=== PATIENT | male | born 1960 | race Caucasian/White ===

== ENCOUNTER → 2017-09-13 08:25 | Outpatient (CLI) | payer OTHER, SELFPAY ==
--- NOTE | 2017-09-13 08:42 | RAD_ITS ---
XR Shoulder Min 2 Views INDICATION: post op COMPARISON: None TECHNIQUE: 3 views of the left shoulder FINDINGS: The left distal clavicle is chronically absent. There is evidence of a left shoulder arthroplasty with components in expected position. There is no evidence of acute fracture. RAD/Shoulder min 2 Views IMPRESSION: Left shoulder arthroplasty. 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 at 1935 Reported and signed by: Shama Bhakta MD Electronically Signed: Shama Bhakta MD at 18:33 EST Tel , Service support ,
== END ==
PROVIDERS: Family Provider Family Medicine; PCP Family Medicine; Visit Provider Orthopaedic Surgery
DX: M25.512 Pain in left shoulder (principal)
CPT/HCPCS: 73030

== ENCOUNTER → 2017-09-29 20:00 | Outpatient (CLI) | payer OTHER, SELFPAY | PROVIDERS: Family Provider Family Medicine; PCP Family Medicine; Visit Provider Family Medicine | DX: G47.33 Obstructive sleep apnea (adult) (pediatric) (principal) | CPT/HCPCS: 95810 ==

== ENCOUNTER → 2018-02-08 20:03 | Outpatient (CLI) | payer OTHER, SELFPAY | PROVIDERS: Family Provider Family Medicine; PCP Family Medicine; Visit Provider Nurse Practitioner Acute Care | DX: G47.33 Obstructive sleep apnea (adult) (pediatric) (principal) | CPT/HCPCS: 95811 ==

== ENCOUNTER 2018-04-22 11:30 | Day surgery (SDC) | payer OTHER, SELFPAY ==
[2018-04-22 11:51] VITALS: BP 135/83; PULSE 90; RESP 18; TEMP 36.6; O2SAT 98; BMI 31.8
[2018-04-22] MEDS: Cefazolin 2 GM in 0.9% Normal Saline 100 ML IV (15:27)
--- NOTE | 2018-04-22 15:34 | DCINST_ITS ---
Discharge Diet: No Restrictions - keep incision clean, dry and intact, if dressing gets wet, change dressing; follow up in 2 weeks for suture removal, call with concerns Discharge Activity: May Not Drive May shower in (days): 1 Ice area for (Minutes): 20 - Every hour while awake. Weight Bearing Status: Weight bearing as tolerated Keep extremity elevated above heart level: Operative Extremity Call your doctor if your incision/area has: Continuous Slow Oozing, Sudden Increased Bleeding, Increased Pain/ Swelling, Increased Redness, Foul Smelling Discharge Call your doctor if you observe: Fever of 101 or Higher, Coldness, Increased Pain, Numbness or Tingling, Change in Color, Calf discomfort Allergies/Adverse Reactions: Allergies hydrocodone [From Vicodin] Adverse Reaction (Verified 04/15/18 14:19) HEADACHE STATES CAN TAKE TYLENOL, NOT VICODIN niacin Adverse Reaction (Verified 04/15/18 14:19) FLUSHING oxycodone Adverse Reaction (Verified 04/15/18 14:19) Nausea/Vom/Diarrhea Medications to take at Discharge Simvastatin [Zocor] 40 mg PO QHS 03/16/17 cholecalciferol (vitamin D3) 400 unit capsule 400 unit PO QDAY 10/20/17 Fluticasone 0.05% [Flonase Nasal [place]] 1 spray NASAL DAILY 04/15/18 Primary Care Physician: Alfred Hernandez [Primary Care Provider] - Test Results: Test results from this visit will be discussed in further detail at your follow- up appointment, if applicable. Please Follow Up With: Saima Dumont, - [phone]
--- NOTE | 2018-04-22 15:34 | PCM.OPRPT ---
Report of Operation Date of Procedure: 04/22/18 Pre-Operative Diagnosis: left ring trigger finger Post-Operative Diagnosis: same Surgery/Procedure Performed:: left a1 elisha release ring finger Type of Anesthesia:: Marlen Espinosa Anesthesiologist: Gabe Ross Estimated Blood Loss (mL): none Description of Procedure: preoperative note 58 year old male with continued left ring finger triggering. Failed conservative treatment. Unable to golf without locking. Risks benefits and alternatives surgery discussed with patient. Risks including but not limited to blood loss, blood clot, infection, neurovascular injury, failure procedure, loss of life and loss of limb. Patient is aware would like to proceed with left ring trigger finger A1 elisha release. Operative note Patient seen and examined preoperative holding area. Left ring finger was marked. Patient brought to the operating room placed supine on the operating room table. Sign, anesthesia, antibiotics were administered. Left arm was prepped and draped in usual sterile fashion after Marlen block was initiated. We marked out our incision for ring finger A1 elisha of the left finger. We ensured that the block was working. We then used a 15 blade to cut through skin and dissect tenotomy dissect down to level of the A1 elisha A1 elisha was released and the tendons were brought out of the skin and the finger was flexed and sent to ensure no further locking which there was not. Incision was clipped was irrigated with copious amounts of sterile saline. Incision was closed with interrupted 4-0 nylon stitches. Sterile dressing were applied. Patient tolerated procedure well there are no comp occasions transferred to recovery room in stable condition. Postoperative Follow-up in 2 weeks Leave dressing clean dry and intact significant dressing wet told to change dressing as Call with concerns This note was generated with [employer] dictation software. It may contain incorrect words, spelling, and punctuation that were not noted in checking the note before signing.
[2018-04-22] MEDS: Mupirocin Ointment 22gm Tube 1 APPLIC (15:53)
[2018-04-22 16:04] VITALS: BP 118/65; BP 135/83; PULSE 82; RESP 16; TEMP 36.3; O2SAT 92
[2018-04-22 16:10] VITALS: BP 115/68; BP 135/83; PULSE 78; RESP 16; O2SAT 92
[2018-04-22 16:14] VITALS: BP 118/69; BP 135/83; PULSE 81; RESP 16; O2SAT 95
[2018-04-22 16:16] VITALS: BP 135/83; PULSE 87; RESP 16; TEMP 36.3; O2SAT 94
[2018-04-22 16:29] VITALS: BP 135/83
== END 2018-04-22 16:30 | disposition home or self-care (01) ==
LOC: SDC 11:31 → AC 11:33
PROVIDERS: Family Provider Family Medicine; PCP Family Medicine; Visit Provider Orthopaedic Surgery
PROC: (CPT 26055; principal; 2018-04-22 12:55)
DX: M65.342 Trigger finger, left ring finger (principal); M65.331 Trigger finger, right middle finger; E78.00 Pure hypercholesterolemia, unspecified; E79.0 Hyperuricemia without signs of inflammatory arthritis and tophaceous disease; J30.9 Allergic rhinitis, unspecified; G47.30 Sleep apnea, unspecified; K21.9 Gastro-esophageal reflux disease without esophagitis; Z79.899 Other long term (current) drug therapy
CPT/HCPCS: 01810; 26055; J7120

== ENCOUNTER → 2018-08-22 08:07 | Outpatient (CLI) | payer OTHER, SELFPAY ==
--- NOTE | 2018-08-22 08:18 | RAD_ITS ---
HISTORY: INJURIES WHILE LIFTING COMPARISON: None FINDINGS: # of images incl. paperwork: 3 XR Elbow Min 3 Views: Left SOFT TISSUES: There is no displacement of the anterior or posterior fat pads. Orthopedic anchor in the region of the biceps insertion on the proximal radius. Tenderness calcification adjacent to the medial condyle.. BONES: No acute fracture or subluxation. No sclerotic or destructive changes observed. JOINTS: Preservation of the joint space. Articular surfaces are unremarkable. RAD/Elbow min 3 Views IMPRESSION: No acute findings. Evidence of previous biceps tendon repair. at 0946 Reported and signed by: Raoul Delcid MD Electronically Signed: Raoul Delcid, at 9:45 EST Tel , Service support ,
== END ==
PROVIDERS: Family Provider Family Medicine; PCP Family Medicine; Referring Provider Orthopaedic Surgery; Visit Provider Orthopaedic Surgery
DX: M79.602 Pain in left arm (principal); M25.512 Pain in left shoulder
CPT/HCPCS: 73080

== ENCOUNTER → 2018-12-23 08:05 | Outpatient (CLI) | payer OTHER, SELFPAY ==
--- NOTE | 2018-12-23 08:06 | RAD_ITS ---
STUDY: X-RAY - LEFT HAND REASON FOR EXAM: Male, 58 years old. Loss of music manager. TECHNIQUE: 3 view(s) of the hand. COMPARISON: None. FINDINGS: Normal radiocarpal articulation. Normal distal radioulnar joint. Normal visualized carpal bones. Normal carpal articulations Normal carpometacarpal articulation of the thumb. Normal second through fifth carpometacarpal joints. Normal metacarpi. Normal metacarpophalangeal joint of the thumb. Normal interphalangeal joint of the thumb. Normal proximal and distal phalanges of the thumb. Normal metacarpophalangeal joints of the second through fifth fingers. Normal proximal and distal interphalangeal joints of the second through fifth fingers. Normal phalanges of the second through fifth fingers. The soft tissue structures are unremarkable. RAD/Hand Min 3 Views IMPRESSION: Normal x-ray examination of the hand. Electronically Signed: Willian Bosch, at 13:46 EDT , Service support ,
== END ==
PROVIDERS: Family Provider Family Medicine; PCP Family Medicine; Referring Provider Orthopaedic Surgery; Visit Provider Orthopaedic Surgery
DX: M79.645 Pain in left finger(s) (principal)
CPT/HCPCS: 73130

== ENCOUNTER → 2019-03-09 06:32 | Outpatient (CLI) | payer OTHER, SELFPAY ==
--- NOTE | 2019-03-09 06:41 | MRI_ITS ---
STUDY: MRI RIGHT ANKLE WITHOUT CONTRAST REASON FOR EXAM: Male, 59 years old. Achilles tendinitis. Fracture. Sinus tarsus syndrome. Pain. TECHNIQUE: Standardized fat and water weighted pulse sequences were obtained in all 3 orthogonal planes. COMPARISON: None. FINDINGS: Normal syndesmotic ligaments. Minimal thickening of the anterior talofibular ligament. Normal posterior talofibular ligament. Normal calcaneofibular ligament. Normal deltoid ligament. Normal spring ligament. Sinus Tarsi/subtalar ligament edema (sagittal images 9 through 12 series 10). Normal Lisfranc ligament. Normal extensor tendons. Normal peroneus tendons. Minimal posterior tibialis, flexor digitorum longus and flexor hallucis longus tenosynovitis. Normal Achilles tendon. Normal plantar fascia. Normal plantar calcaneal insertion. Normal muscles of the midfoot/hindfoot. Slightly prominent talar beak. Talar dome intact. Minimal tibiotalar joint arthrosis anteriorly. Normal subtalar articular cartilage. Normal calcaneocuboid articular cartilage. Normal talonavicular articular cartilage. Mild navicular cuneiform joint arthrosis (sagittal image 16 series 9) with partial fibro-osseous coalition. Mild second tarsometatarsal joint arthrosis. Mild medial/middle cuneiform arthrosis. No acute fracture line. No dislocation. Mild medial cuneiform bone marrow edema. Mild soft tissue swelling. No solid, cystic or lipomatous soft tissue lesions. Small volume subtalar joint effusion extending into the sinus Tarsi. Trace talonavicular joint effusion. 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
== END ==
PROVIDERS: Family Provider Family Medicine; PCP Family Medicine; Referring Provider Podiatrist; Visit Provider Podiatrist
DX: M76.71 Peroneal tendinitis, right leg (principal); M76.61 Achilles tendinitis, right leg; S82.51XA Displaced fracture of medial malleolus of right tibia, initial encounter for closed fracture; M25.571 Pain in right ankle and joints of right foot; X58.XXXA Exposure to other specified factors, initial encounter; Y93.9 Activity, unspecified; Y92.9 Unspecified place or not applicable; Y99.9 Unspecified external cause status
CPT/HCPCS: 73721

== ENCOUNTER → 2019-09-06 09:11 | Outpatient (CLI) | payer OTHER, SELFPAY ==
[2019-09-05 12:44] VITALS: BMI 31.8
--- NOTE | 2019-09-06 09:11 | RAD_ITS ---
STUDY: X-RAY - RIGHT HAND REASON FOR EXAM: Male, 59 years old. CHRONIC PAIN. NO INJURY TECHNIQUE: 3 view(s) of the hand. COMPARISON: None. FINDINGS: Normal radiocarpal articulation. Normal distal radioulnar joint. Normal visualized carpal bones. Normal carpal articulations There are mild degenerative changes of the first metacarpal greater multangular joint. Normal second through fifth carpometacarpal joints. Normal metacarpi. There are mild degenerative changes of the first metacarpophalangeal joint. Normal interphalangeal joint of the thumb. There is a cortical step off of the base of the first distal phalanx which may represent old injury. Normal metacarpophalangeal joints of the second through fifth fingers. Normal proximal and distal interphalangeal joints of the second through fifth fingers. Normal phalanges of the second through fifth fingers. The soft tissue structures are unremarkable. RAD/Hand Min 3 Views IMPRESSION: Mild degenerative changes of the first metacarpal greater multangular joint and first metacarpophalangeal joint. There is a cortical step off of the base of the first distal phalanx which may represent evidence of old injury. Electronically Signed: Raoul Duarte MD at 16:49 EST , Service support ,
== END ==
PROVIDERS: PCP Family Medicine; Referring Provider Orthopaedic Surgery; Visit Provider Orthopaedic Surgery
DX: M79.641 Pain in right hand (principal)
CPT/HCPCS: 73130

== ENCOUNTER → 2020-01-15 08:30 | Outpatient (CLI) | payer OTHER, SELFPAY ==
[2020-01-15 08:25] VITALS: BMI 31.8
--- NOTE | 2020-01-15 08:31 | RAD_ITS ---
STUDY: X-RAY - RIGHT SHOULDER REASON FOR EXAM: Male, 59 years old. Shoulder pain, no injury TECHNIQUE: 4 view(s) of the shoulder. COMPARISON: None. FINDINGS: Glenohumeral joint has been previously replaced. Components demonstrate anatomic alignment. No plain film evidence of hardware complication, failure, or acute traumatic abnormality. There is a subcortical lucency in the region of the greater tuberosity of the humerus this may be a bone cyst or posttraumatic in nature.. There is degenerative arthrosis of the acromioclavicular joint without inferior osseous spur formation. Normal acromion. Normal humeral head and visualized proximal humerus. The soft tissue structures are unremarkable. Normal visualized pulmonary apex. RAD/Shoulder min 2 Views IMPRESSION: Anatomic alignment of a replaced glenohumeral joint. Hardware is free of complication Mild acromioclavicular joint arthrosis Sub cortical lucency in the greater tuberosity of the humerus, likely posttraumatic Electronically Signed: Vishal Gao MD at 9:03 EDT , Service support ,
== END ==
PROVIDERS: PCP Family Medicine; Referring Provider Orthopaedic Surgery; Visit Provider Orthopaedic Surgery
DX: Z96.611 Presence of right artificial shoulder joint (principal)
CPT/HCPCS: 73030

== ENCOUNTER → 2020-06-21 | Outpatient (CLI) | payer OTHER, SELFPAY ==
[2020-06-21 14:17] VITALS: BMI 32.9
== END | disposition home or self-care (01) ==
LOC: LABSPEC 17:32
PROVIDERS: PCP Family Medicine; Visit Provider Physician Assistant Surgical
DX: U07.1 COVID-19 (principal)
CPT/HCPCS: 87635; U0003

== ENCOUNTER 2021-02-17 07:30 | Outpatient (RCR) | payer OTHER, SELFPAY ==
[2020-06-21 14:17] VITALS: BMI 32.9
[2020-11-23 12:18] VITALS: BMI 31.8
--- NOTE | 2020-12-09 08:15 | HP.PTEVAL ---
Patient's Visit Information AMAYA SILVA is a 60 year old M referred to Physical Therapy by SHAINA LAWSON with a diagnosis of R reverse TSA 11/28/20. Date of Evaluation: 12/09/20 Physical Therapist: Porter Saenz, DPT, OCS, CSCS - Visit Plan Frequency: 2-3x /Week Duration: 3 Months Plan: 3x/week for 2-4 weeks then 1-2x/weeka s needed for 4-8 weeks. Pt is currently limited to only PROM flexion 140 and er 30 until 12/19, then AROM with same limitations until doctor f/u 01/02. Can do PROM, scar massage, ice as needed. Cn teach family PROM if desired. Gentle elisha allowable. - Subjective Original TSA r in 2014. Needed revision to R reverse TSA 11/28/20. Pastic was broken in old one. It went fantastic. No pain pills needed. No pain lately, maybe 0-08/04. Sleeping OK in bed and no problems. This is 16th shoulder surgery(RTC B 2x, spurs). Off work couple days. 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 Sling out in public if desired. Doctor said no sling. Don't go backwards or out with arm. Washing hair and eating with R arm. No golfing yet allowed. Can't drive car as he has to shift his corvette. R handed. Is ambidextrous. Doing pendulums - Pain r shoulder Pain Intensity (Out of 10): 0 Pain Intensity Range: 0, 1 - Objective Walks in I, trasnferring I, and sling on R UE, donned adn doffed I. cervical ROM symmetrical adn painfree. ebow and hand/wrist AROM full and painfree. L shoulder aROM WFL and without pain. R shoulder PROM(script only allows this) 110 flexion, 80 abd, 8 ER, 40 IR. Limtied by patient feeling of tightness, not pain. strength R elbow 4-, wrist 4, thumb 4, shoulder not tested. Incision is anterior and helaed well, dry,no signs of excessive redness , heat or swelling. Smome moderate scar tissue palpable ditally mediall at incision. - Goals Goal 1:: Progress per scripts without issues through strength once allowed. Goal Time Frame: 6-8 Weeks Goal 2:: Plan for patient to return to gof Goal Time Frame: 8-12 Weeks Goal 3:: Drive car without pain Goal Time Frame: 4-6 Weeks Goal 4:: ST: PROM to 140 abd and 30 ext rot Goal Time Frame: 2 Weeks Goal 5:: quick dash score 5 or less. Goal Time Frame: 6-8 Weeks - Rehabilitation Potential Physical Therapy Diagnosis: s/p R rev TSA with stiffness and lack of function. Rehabilitation Potential: Good - Anticipated Interventions Patient/Client Instruction: Educate patient on: Condition, Plan of Care, Risk Factors For the Purpose of:: To increase ROM, To improve muscle performance and motor function, To increase tolerance to activity/condition/position, To improve ability of physical actions for home/community/work/leisure, To improve gait and locomotor functions Therapeutic Exercise to Include: Passive ROM For the Purpose of:: To increase ROM Manual Therapy Techniques to Include: Scar massage, Passive ROM For the Purpose of:: To increase ROM, To improve nutrient delivery to tissue, To improve muscle performance and motor function Cryotherapy (ice pack, ice massage): Yes For the Purpose of:: To decrease swelling/inflammation Thank you for the opportunity to evaluate your patient. For Medicare and Medicare HMO plans, please review the plan of care and approve it. It will need to be FAXED BACK to us at [phone] for Medicare purposes. For Medicare only, by signing this I certify the plan of care. Please let me know if there are questions or concerns regarding this plan of care. Physician Signature: Date:
--- NOTE | 2021-01-24 08:35 | HP.PTREVAL ---
SHAINA LAWSON, It has been my pleasure to treat AMAYA SILVA over the last 18 visits for R reverse TSA 11/28/20. Please see the progress note below for an update on the physical therapy plan of care! Subjective: Pt reports he is doing well, and wants to cut down to once per week after this visit Objective/Function: R shoulder pain is 0/10. R shoulder strength: R shoulder is 5/5 throughout with exception to ER= 4/5. R shoulder ROM: Flex= 150, abd= 140, ER= 22 Plan Plan: If tolerated, please give YTB row, add, ext, er, bi and tri with pics for HEP gently. Emphasize gentleness and painfree ROM. Goals Goal 1:: Progress per scripts without issues through strength once allowed. Goal Time Frame: 6-8 Weeks Goal Progress: Progressing Goal 2:: Plan for patient to return to gof Goal Time Frame: 8-12 Weeks Goal Progress: Progressing Goal 3:: Drive car without pain Goal Time Frame: 4-6 Weeks Goal Progress: Goal Met Goal 4:: ST: PROM to 140 abd and 30 ext rot Goal Time Frame: 2 Weeks Goal Progress: Progressing Goal 5:: quick dash score 5 or less. Goal Time Frame: 6-8 Weeks Anticipated Interventions Patient/Client Instruction: Educate patient on: Condition, Plan of Care, Risk Factors For the Purpose of:: To increase ROM, To improve muscle performance and motor function, To increase tolerance to activity/condition/position, To improve ability of physical actions for home/community/work/leisure, To improve gait and locomotor functions Therapeutic Exercise to Include: Passive ROM For the Purpose of:: To increase ROM Manual Therapy Techniques to Include: Scar massage, Passive ROM For the Purpose of:: To increase ROM, To improve nutrient delivery to tissue, To improve muscle performance and motor function Cryotherapy (ice pack, ice massage): Yes For the Purpose of:: To decrease swelling/inflammation Please do not hesitate to contact me at [phone] by phone or if you have questions or concerns regarding this new plan of care! Sincerely, Yobani Bourne, PT, ATC
--- NOTE | 2021-02-17 07:55 | HP.PTDCSUM ---
It has been my pleasure to treat AMAYA SILVA referred by SHAINA LAWSON, with the diagnosis of R reverse TSA 11/28/20 for a total of 24 visit(s). Discharge Date: 02/17/21 Please see the following information for a summary of their discharge status. Subjective: No pain. Still little different than other shoulder. Getting hand behind back is a booger. Day to day activities not llimited. To doctor next Wednesday. Working out on own now in gym. Using machines and free weights. r shoulder Pain Intensity (Out of 10): 0 % Improvement: 90 Objective/Function: 142 R shouldr flexion, 150 abduction, 40 R ext rotation, L5 IR. strength is 4 flexion, 4 abd, 4+ IR, 4 ER, 4- IR/ER at 90. Moving very weel for his procedure and ready to try some golf once doctor released. Goal 1:: Progress per scripts without issues through strength once allowed. Goal Progress: Goal Met Goal 2:: Plan for patient to return to gof Goal Progress: ready, doc to release Goal 3:: Drive car without pain Goal Progress: Goal Met Goal 4:: ST: PROM to 140 abd and 30 ext rot Goal Progress: Goal Met Goal 5:: quick dash score 5 or less. Goal Progress: not released to golf yet. Plan: d/c Discharge Comments: continue with gym ex program and flexibility at home. To doctor net week. If there are questions or concerns regarding this patient's physical therapy, please feel free to call me at [phone]. Thank you for the referral of this patient. Sincerely, Porter Saenz, DPT, OCS, CSCS
== END 2021-02-17 16:16 | disposition home or self-care (01) ==
LOC: PT 07:30
PROVIDERS: PCP Family Medicine
DX: Z47.89 Encounter for other orthopedic aftercare (principal)
CPT/HCPCS: 97110; 97140; 97161; 97164

== ENCOUNTER 2021-09-02 07:30 | Outpatient (RCR) | payer OTHER, SELFPAY ==
--- NOTE | 2021-07-22 09:14 | HP.OTEVAL ---
Patient's Visit Information AMAYA SILVA is a 61 year old M, referred to Occupational Therapy by Dr. 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 Date of Evaluation: 07/16/21 Occupational Therapist: Diamond Giron, OTR/L, CHT - Subjective This 61 year old male was seen for OT eval with dx of unilateral primary osteoarthritis of 1st carpometacarpal joint left hand-. pt states he had pain in left thumb wrist for 3-4 years after conservatives methods failed he opted for sx. DOS 2020- pt s/p 3 weeks 1 days arrives with orthosis on- request sight adj. pt states no pain and currently is happy with his sx. pts is assisting pt with ADLs and IADls. pt would like to return to his PLOF. - ROM Wrist: right 70/70 left 65/40 CMC: right 60 left 5 MP: right 30 left 20 IP: right 50 left 20 Radial Abduction: right 45 left 35 - Strength Rattling Machine Tender: right 100# left NT Lateral Pinch: right 26# left NT Tripod Pinch: right 22# left NT Strength Comments: left will test later date - Sensation Sensation Comments: numbness around MPJ - DASH-Disabilities of Arm, Shoulder& Hand DASH Sum: 19 - Quick DASH-Disab of Arm,Shoulder& Hand Quick DASH Score: 50.0000 - Goals Goal:100% adherence to protocol: Yes Comment: Dr. Álvarez cmc arthroplasty protocol - Rehabilitation General Assessment: pt 3 weeks and 1 days s/p from Left carpometacarpal ligament reconstruction tendon interposition with DeQuervain's tenosynovectomy and thumb adductor release. Pt arrives with newly healing structures and is limted with left UE use with ADLs and IADls. pt would benefit from skilled OT services 1x week for 6-8 weeks to return pt to his PLOF. Today therapist ed, pt on sx, and Dr. Bailon's cmc arthroplasty protocol, scar mtg and short arch wrist motion- gave handouts - therapist measured pt for comfort cool cmc brace and ed. pt on where he could purchase one. pt demo understanding and agree to POC Rehabilitation Potential: Excellent - Anticipated Interventions A/AAROM/PROM, Strengthening, Scar Care, Modalities, Orthoses, Joint Protection/Energy Conservation, Ergonomic Education - Visit Plan Frequency: 1-2x /Week TEXT: Thank you for the opportunity to evaluate your patient. For Medicare and Medicare HMO plans, please review the plan of care and approve it. It will need to be FAXED BACK to us at [phone] for Medicare purposes. Please let me know if there are questions or concerns regarding this plan of care. Physician Signature: Date:
--- NOTE | 2021-08-19 07:58 | OTREVAL_ITS ---
Dr. 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 Please see the progress note below for an update on the occupational therapy plan of care! Subjective: pt arrives 8 weeks s/p from cmc arthroplasty - pt is progressing well with his ex. pt just came home from two week out of town trip to visit his dtr- pt reports CMC feels good IP sore - Objective/Function: left wrist 70/55. left MP 40. left IP 35. opposition to RF PIP crease. left junior systems administrator strength 55# right 115#. left lateral pinch 4#. pt is progressing well and reports no pain -. pt has comfort cool thumb brace he wears Plan Frequency: 1-2x /Week Duration: 2 Weeks Plan: continue with protocol - and increase resistance as radha. unless Dr. indicates any further instructions. Goals - Goals Patient Goals: Regain Mobility, Use Hand/Wrist/Arm Normally Again Goal:100% adherence to protocol: Yes Goal:Daily scar massage when approriate: Yes Goal:ROM equal to unaffected hand: Yes Goal:Business Change Manager/Pinch strength at least 75% of unaffected hand: Yes Goal:No pain with affected hand use: Yes Goal:Full use of affected hand in daily activities including: Yes Goal:Decrease scar hypersensitivity: Yes Anticipated Interventions Anticipated Interventions: A/AAROM/PROM, Strengthening, Scar Care, Modalities, Orthoses, Joint Protection/Energy Conservation, Ergonomic Education Please do not hesitate to contact me at [phone] by phone or if you have questions or concerns regarding this new plan of care! Sincerely, Diamond Giron, OTR/L, CHT
--- NOTE | 2021-09-02 07:57 | HP.OTDCSUM_ITS ---
It has been my pleasure to treat AMAYA SILVA under orders from Dr. 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 Please see the following information for a summary of their discharge status. % Improvement: 90 Objective/Function: left wrist 70/55. left MP 40. left IP 35. opposition to RF PIP crease. left sports medicine trainer strength 75# right 115#. left lateral pinch 10#. pt is progressing well and reports no pain -. pt has comfort cool thumb brace he wears with good activities-. pt is performing 90% of his ADLS and is good to continue with HEP. Patient Goals: Regain Mobility, Use Hand/Wrist/Arm Normally Again Goal:100% adherence to protocol: Yes Goal:Daily scar massage when approriate: Yes Goal:ROM equal to unaffected hand: Yes Goal:Uptwist Spinner/Pinch strength at least 75% of unaffected hand: Yes Goal:No pain with affected hand use: Yes Goal:Full use of affected hand in daily activities including: Yes Goal:Decrease scar hypersensitivity: Yes Plan: D/C Discharge Comments: pt progressed well with is recovery-pt has met all OT goals and is D/C from OT with continuation of HEP. pt agree with dc If there are questions or concerns regarding this patient's occupational therapy, please fell free to call me at [phone]. Thank you for the referral of this patient. Sincerely, Diamond Giron, OTR/L, CHT
== END 2021-09-02 10:21 | disposition home or self-care (01) ==
LOC: OT 07:30
PROVIDERS: PCP Family Medicine; Referring Provider Orthopaedic Surgery Hand Surgery; Visit Provider Orthopaedic Surgery Hand Surgery
DX: M18.12 Unilateral primary osteoarthritis of first carpometacarpal joint, left hand (principal)
CPT/HCPCS: 97035; 97110; 97140; 97166; 97530

== ENCOUNTER 2023-03-22 08:30 | Outpatient (RCR) | payer MEDICARE, OTHER, SELFPAY ==
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
--- NOTE | 2023-02-26 07:37 | HP.PTREVAL ---
Re-Evaluation Intro: Dr. Joe Torres, DO, It has been my pleasure to treat AMAYA SILVA over the last 7 visits for LUMBAR DDD, L SNAPPING HIP AND L KNEE MENISCUS TEAR. Please see the progress note below for an update on the physical therapy plan of care! Subjective Subjective: Patient states the stabbing pain in my right low back is gone. My left hip and knee are really good. Minimal L hip/knee pain and only if i am on them for a long time. Wrestling with the grandkids didn't bother me last night. Able to drive four hours at a time on recent trip in [facility] with no problem. Patient reports the biggest improvement has been learning to get up and bend with his back straight. Objective Objective/Function: PATIENT WAS SEEN TODAY FOR RE-ASSESSMENT OF PROGRESS TOWARD THE SET PT GOALS AND THE NEED FOR FURTHER PHYSICAL THERAPY VS READINESS FOR DISCHARGE. PATIENT HAS MADE GREAT PROGRESS WITH AQUATIC THERAPY AND NEEDS INSTRUCTION FOR SAFE GYM PROGRAM. UPON EXAM TODAY: Lumbar mvmt loss: flex - NIL ext - MOD R SG - MOD L SG - MOD PATIENT DENIES INCREASED PAIN WITH LUMBAR ROM TESTING ALL PLANES. BRIEF INSTRUCTION IN MODIFICATION FOR PATIENTS CURRENT GYM PROGRAM BUT PATIENT UNABLE TO STAY LONGER TODAY DUE TO ANOTHER COMMITTMENT. PATIENT IS AGREEABLE WITH POC. Plan Plan Plan: CONTINUE PT ONE TIME A WK X 3 WKS FOR GYM MACHINE INSTRUCTION WITH EMPHASIS ON PROPER TECHNIQUE, CORE STABILIZATION AND LE STRENGTHENING. Balance/Gait/Functional tests Balance/Special Test Scores Oswestry Low Back Score: 2 Goals Goals Goal 1:: DECREASE C/O LOW BACK AND L LE SX'S. Goal Time Frame: 4-6 Weeks Goal Progress: Goal Met Goal 2:: IMPROVE LIFTING, WALKING, SITTING, STANDING, SLEEP, SOCIAL LIFE, TRAVEL AND WORK/HOMEMAKING FUNCTION Goal Time Frame: 4-6 Weeks Goal Progress: Goal Met Goal 3:: INSTRUCT IN PROPHYLAXIS Goal Time Frame: 4-6 Weeks Goal Progress: Progressing Anticipated Interventions Anticipated Interventions Patient/Client Instruction: Educate patient on: Condition, Plan of Care and Risk Factors For the Purpose of:: To improve self management Therapeutic Exercise to Include: Strength training, Body mechanics, Postural training, Flexibilty training, Neuromotor development, In an aquatic setting and Dynamic Lumbar Stabilization For the Purpose of:: To decrease pain, To increase ROM, To improve muscle performance and motor function, To increase tolerance to activity/condition/position and To improve ability of physical actions for home/community/work/leisure Re-Evaluation Ending Re-evaluation ending: Please do not hesitate to contact me at [phone] by phone or if you have questions or concerns regarding this new plan of care! Sincerely, Odette Sutton, PT, Cert MDT
--- NOTE | 2023-05-25 13:42 | HP.PT.NRP ---
Patient Information Patient Information: AMAYA SILVA was seen in my office for initial evaluation on 02/05/23. The following Plan of Care was established for this patient: POC Established Initial Frequency: 2x /Week Initial Duration: 4-6 Weeks Anticipated Interventions Patient/Client Instruction: Educate patient on: Condition, Plan of Care and Risk Factors For the Purpose of:: To improve self management Therapeutic Exercise to Include: Strength training, Body mechanics, Postural training, Flexibilty training, Neuromotor development, In an aquatic setting and Dynamic Lumbar Stabilization For the Purpose of:: To decrease pain, To increase ROM, To improve muscle performance and motor function, To increase tolerance to activity/condition/position and To improve ability of physical actions for home/community/work/leisure Last Seen Last Seen: This patient was last seen in our office 03/22/23. Pertinent comments regarding their Physical therapy will appear below: This patient has not returned to Physical Therapy and is appropriate to return to MD for further follow-up as needed. At this point I will be discontinuing this patient from physical therapy. I would be happy to see this patient again in the future if found appropriate by the physician. Thank you! Odette Sutton, PT, Cert MDT Balance/Gait/Functional tests Balance/Special Test Scores Oswestry Low Back Score: 2
== END 2023-03-22 19:00 | disposition home or self-care (01) ==
LOC: PT 08:30
PROVIDERS: PCP Family Medicine; Referring Provider Orthopaedic Surgery; Visit Provider Orthopaedic Surgery
DX: M23.307 Other meniscus derangements, unspecified meniscus, left knee (principal); M24.852 Other specific joint derangements of left hip, not elsewhere classified; M51.36 Other intervertebral disc degeneration, lumbar region
CPT/HCPCS: 97110; 97112; 97113; 97162; 97164

== ENCOUNTER 2023-12-03 08:00 | Outpatient (RCR) | payer MEDICARE, SELFPAY ==
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
== END 2023-12-03 19:00 | disposition home or self-care (01) ==
LOC: PT 08:00
PROVIDERS: PCP Family Medicine; Referring Provider Orthopaedic Surgery Orthopaedic Surgery of the Spine; Visit Provider Orthopaedic Surgery Orthopaedic Surgery of the Spine
DX: M54.16 Radiculopathy, lumbar region (principal)
CPT/HCPCS: 97110; 97162; 97530

== ENCOUNTER 2024-08-02 08:00 | Outpatient (RCR) | payer MEDICARE, SELFPAY ==
--- NOTE | 2024-06-13 09:42 | HP.OTEVAL ---
Patient's Visit Information Visit Information Visit Information: AMAYA SILVA is a 64 year old M, referred to Occupational Therapy by Dr. Yoly Bailon MD, with a diagnosis of Right CMC arthritis. Date of Evaluation: 06/07/24 Occupational Therapist: EUGENIA Chow/Sahra, CHT Subjective Subjective: This 64 year old male was seen for OT eval with dx of a right unilateral primary osteoarthritis of first carpometacarpal joint right hand. Pt states DOS 05/23/24. pt is right handed pt states he feels great Pain right hand: Current Pain Intensity: 0 Pain Intensity Range: 1 and 3 ROM Wrist: right 60/30 left 75/60 CMC: right NT left 15 MP: right 25 left 50 IP: right 15 left 40 ROM Comments: will test CMC motion at later date Strength [employer] First Officer: right NT left 110# Lateral Pinch: right NT left 20# Tripod Pinch: right NT left 18# Edema Wrist: right 20cm left 18.5cm Other: right thumb 8.8 left 7.4 Sensation Sensation Comments: denies Quick DASH-Disab of Arm,Shoulder& Hand Quick DASH Score: [phone] Goals Goal:100% adherence to protocol: Yes Comment: folakshating Dr. Bailon's cmc arthroplasty p/s guidelines Goal:Daily scar massage when approriate: Yes Goal:ROM equal to unaffected hand: Yes Goal:International First Officer/Pinch strength at least 75% of unaffected hand: Yes Comment: will not initiate until Dr. ram Goal:Full use of affected hand in daily activities including work: Yes Goal:Decrease scar hypersensitivity: Yes Comment: orthosis use Other Goal: pt will demo understanding of orthosis use by end of 1st session. Rehabilitation General Assessment: Pt s/p 2 weeks and 1 day from cmc arthroplasty. Pt is limited with use of right dominate hand as newly healing structures require stabilization/support and protection while healing. Pt demo need for skilled OT services 1-2x week for 8 weeks to return pt to her PLOF with ADLs and daily tasks. Today therapist reviewed Dr. Yoly Bailon MD, MS post op protocol for CMC arthroplasty, edema control, orthosis use and precaution( pt to notify therapist if orthosis is causing rubbing or blisters) as well as review of short arch wrist motion. Pt demo understanding and agree to POC. Anticipated Interventions Anticipated Interventions: A/AAROM/PROM, Strengthening, Edema Control, Scar Care, Modalities, Orthoses, Joint Protection/Energy Conservation, Ergonomic Education, Education re assistive Equipment and Home Program Visit Plan Frequency: 1-2x /Week Duration: 2 Months General Plan: Dr. Bailon CMC arthroplasty Week 2: exercise- AROM performed for digits and thumb IP joint only Begin short arc wrist motion - initiate scar mtg Week 4: cut WHFO thumb spica down to hand based thumb spica -Begin PROM to wrist if tight- AROM for thumb CMC- joint- cont. scar mtg/edema control (modalities as indicated for pain and edema. Week 6: comfort cool splint orthoplast splint at night and heavy activity. Exercise: start gentle strengthening(thera-putty), progress as tolerated Progress to wrist strengthening and heavier prehension tasks at 8 weeks post-operative *Avoid forceful extension of thumb * Week 8 D/C orthoplast splint by week 8 except for heavy activity PRN -progress to wrist strengthening and heavier prehension tasks *Avoid forceful extension of the thumb* Expectations: Most patients are treated with a Home Program and checked after each MD visit for program progression 2x weekly for 4-6 weeks for symptomatic patients or those returning to heavier work demands. 2 months to resume normal activities, 3 months for strenuous 3-6 months to reach optimum results slight decrease in pinch and chisel trimmer strength TEXT: Thank you for the opportunity to evaluate your patient. For Medicare and Medicare HMO plans, please review the plan of care and approve it. It will need to be FAXED BACK to us at [phone] for Medicare purposes. Please let me know if there are questions or concerns regarding this plan of care. Physician Signature: Date:
--- NOTE | 2024-08-02 08:28 | HP.OTREVAL ---
Re-Evaluation Intro: Dr. Yoly Bailon MD, It has been my pleasure to treat AMAYA SILVA over the last 9 visits for Right CMC arthritis. Please see the progress note below for an update on the occupational therapy plan of care! Subjective Subjective: pt arrives 10 weeks and 1 days s/p from CMC arthroplasty pt states he is performing all ADLs states he still is not lifting with his UB weights states endurance of iron melter and pinch strength is still a problem - Objective Objective/Function: pt demo with a right iron melter strength of 65# right lateral pinch 10# right tripod pinch 10# right wrist 65/55 right CMC 10 right MP 45 right IP 30 PA 45* Plan Plan Visits in this POC: pt return to pt to cont. with his HEP and light PRE Plan: Dr. Bailon CMC arthroplasty Week 6: comfort cool splint orthoplast splint at night and heavy activity. Exercise: start gentle strengthening(thera-putty), progress as tolerated Progress to wrist strengthening and heavier prehension tasks at 8 weeks post-operative *Avoid forceful extension of thumb * Week 8 D/C orthoplast splint by week 8 except for heavy activity PRN -progress to wrist strengthening and heavier prehension tasks *Avoid forceful extension of the thumb* Expectations: Most patients are treated with a Home Program and checked after each MD visit for program progression 2x weekly for 4-6 weeks for symptomatic patients or those returning to heavier work demands. 2 months to resume normal activities, 3 months for strenuous 3-6 months to reach optimum results slight decrease in pinch and iron melter strength Goals Goals Patient Goals: Regain Mobility, Return to Work, Improve Fine Motor Skills, Use Hand/Wrist/Arm Normally Again and Resume Former Household Responsibilities (Cooking,Cleaning,Yard, etc.) Goal:100% adherence to protocol: Yes Goal:Daily scar massage when approriate: Yes Goal:ROM equal to unaffected hand: Yes Goal:Java Front End Web Developer/Pinch strength at least 75% of unaffected hand: Yes Goal:Full use of affected hand in daily activities including work: Yes Goal:Decrease scar hypersensitivity: Yes Other Goal: pt will demo understanding of orthosis use by end of 1st session. Anticipated Interventions Anticipated Interventions Anticipated Interventions: A/AAROM/PROM, Strengthening, Edema Control, Scar Care, Modalities, Orthoses, Joint Protection/Energy Conservation, Ergonomic Education, Education re assistive Equipment and Home Program Re-Evaluation Ending Re-evaluation ending: Please do not hesitate to contact me at [phone] by phone or if you have questions or concerns regarding this new plan of care! Sincerely, Diamond Giron, OTR/L, CHT
--- NOTE | 2024-10-04 13:40 | HP.OTDCNRP_ITS ---
Patient Information Patient Information: AMAYA SILVA was seen in my office for initial evaluation on 06/07/24. The following Plan of Care was established for this patient: POC Established Initial Frequency: 1-2x /Week Initial Duration: 2 Months Plan: Dr. Bailon [facility] arthroplasty Week 6: comfort cool splint orthoplast splint at night and heavy activity. Exercise: start gentle strengthening(thera-putty), progress as tolerated Progress to wrist strengthening and heavier prehension tasks at 8 weeks post- operative *Avoid forceful extension of thumb * Week 8 D/C orthoplast splint by week 8 except for heavy activity PRN -progress to wrist strengthening and heavier prehension tasks *Avoid forceful extension of the thumb* Expectations: Most patients are treated with a Home Program and checked after e ach MD visit for program progression 2x weekly for 4-6 weeks for symptomatic patients or those returning to heavier work demands. 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 Pertinent comments regarding their Occupational therapy will appear below: pt returned to and was released from Therapy- pt progressed well and returned to his gym workouts- pt d/c from OT at this time. At this point I will be discontinuing this patient from occupational therapy. I would be happy to see this patient again in the future if found appropriate by the physician. Thank you! Diamond Giron, OTR/L, CHT
== END 2024-08-02 19:00 | disposition home or self-care (01) ==
LOC: OT 08:00
PROVIDERS: PCP Family Medicine; Referring Provider Orthopaedic Surgery Hand Surgery; Visit Provider Orthopaedic Surgery Hand Surgery
DX: M18.11 Unilateral primary osteoarthritis of first carpometacarpal joint, right hand (principal)
CPT/HCPCS: 97110; 97140; 97166

== ENCOUNTER → 2025-06-27 | Outpatient (CLI) | payer MEDICARE, SELFPAY ==
[2025-06-27 18:05] LABS: Anion Gap 11 (5-15); BUN 15 mg/dL (4-19); BUN/Creat Ratio 12.1 RATIO (10-20); Calcium,Total 9.5 mg/dL (7.6-11.0); Carbon Dioxide 26.3 mmol/L (21.0-32.0); Chloride 105 mmol/L (98-108); Glucose 91 mg/dL (70-99); Potassium 4.0 mmol/L (3.3-5.1); Uric Acid 7.7 mg/dL (3.5-7.2)
== END | disposition home or self-care (01) ==
LOC: MTLAB 15:30
PROVIDERS: PCP Family Medicine; Referring Provider Podiatrist; Visit Provider Podiatrist
DX: M10.471 Other secondary gout, right ankle and foot (principal)
CPT/HCPCS: 36415; 80048; 83036; 84550